=== PATIENT | male | born 1955 | race African-American/Black ===

== ENCOUNTER 2022-03-21 15:21 | Emergency (ER) | payer BC ==
[~2022-03-21] VITALS: Ht 180.3 cm; Wt 134.0 kg
[2022-03-21 15:26] VITALS: BP 170/99
[2022-03-21] MEDS ORDERED: BENZ100C86 MT (16:32)
== END 2022-03-21 17:36 | disposition home or self-care (01) ==
LOC: ER 15:21
DX: R05.3 Chronic cough (principal); J34.89 Other specified disorders of nose and nasal sinuses; Z20.822 Contact with and (suspected) exposure to COVID-19; I10 Essential (primary) hypertension
CPT/HCPCS: 71046; 87426; 99284; C9803

== ENCOUNTER 2023-03-23 12:32 | Emergency (ER) | payer BC ==
[~2023-03-23] VITALS: Ht 182.9 cm; Wt 130.0 kg
[~2023-03-23 12:32] MED LIST: BENZ100C86 MT
[2023-03-23 12:45] VITALS: BP 148/103; PULSE 88; RESP 16; TEMP 98.5; O2SAT 92
[2023-03-23 14:03] LABS: CLARITY URINE CLEAR (CLEAR); COLOR URINE YELLOW (YELLOW); GLUCOSE URINE NEGATIVE (NEGATIVE); KETONES URINE NEGATIVE (NEGATIVE); LEUKOCYTE ESTERASE URINE 1+ (NEGATIVE); NITRITE URINE POSITIVE (NEGATIVE); OCCULT BLOOD URINE NEGATIVE (NEGATIVE); PROTEIN URINE NEGATIVE (NEGATIVE); SPECIFIC GRAVITY URINE 1.013 (1.005-1.030); UROBILINOGEN URINE 0.2 E.U./dL (0.2-1.0)
[2023-03-23 14:37] LABS: BACTERIA URINE 4+; SQUAMOUS EPITHELIAL CELL URINE RARE /lpf (RARE/1+); WBC URINE 15-25 /hpf (0-2)
[2023-03-23 14:38] LABS: RBC URINE 0-2 /hpf (0-2)
[2023-03-23] MEDS ORDERED: LEVO750T68 MT (17:59)
[2023-03-23] MEDS ORDERED: LEVOFLOXACIN 250MG TABLET PO ONE (18:00)
== END 2023-03-23 18:39 | disposition home or self-care (01) ==
LOC: ER 12:32
DX: N39.0 Urinary tract infection, site not specified (principal); R30.0 Dysuria; J44.9 Chronic obstructive pulmonary disease, unspecified; I10 Essential (primary) hypertension
CPT/HCPCS: 81003; 87186; 99283

== ENCOUNTER 2023-03-30 11:56 | Emergency (ER) | payer BC ==
[~2023-03-30] VITALS: Ht 177.8 cm; Wt 105.0 kg
[~2023-03-30 11:56] MED LIST changes: +LEVO750T68 MT
[2023-03-30 11:58] VITALS: BP 115/73; PULSE 90; RESP 16; TEMP 98.5; O2SAT 93
[2023-03-30 16:01] LABS: CLARITY URINE CLEAR (CLEAR); COLOR URINE YELLOW (YELLOW); GLUCOSE URINE NEGATIVE (NEGATIVE); KETONES URINE TRACE (NEGATIVE); LEUKOCYTE ESTERASE URINE NEGATIVE (NEGATIVE); NITRITE URINE NEGATIVE (NEGATIVE); OCCULT BLOOD URINE NEGATIVE (NEGATIVE); PROTEIN URINE NEGATIVE (NEGATIVE)
== END 2023-03-30 16:26 | disposition home or self-care (01) ==
LOC: ER 11:56
DX: N39.498 Other specified urinary incontinence (principal); M19.90 Unspecified osteoarthritis, unspecified site; J44.9 Chronic obstructive pulmonary disease, unspecified; I10 Essential (primary) hypertension
CPT/HCPCS: 81003; 99283